=== PATIENT | male | born 1990 | race Caucasian/White ===

== ENCOUNTER → 2018-06-28 | Outpatient (CLI) | payer OTHER ==
--- NOTE | 2018-06-28 15:39 | RAD ---
Limited ultrasound evaluation, right lower extremity 06/28/2018 INDICATION: Nonpainful lump, right side. Lesion present approximately 1 year. COMPARISON STUDY: None Discussion: Focused sonographic evaluation of a palpable abnormality in the right thigh, medial to midline was performed. Static images are submitted to PACS. There is a subcutaneous hyperechoic rounded lesion which is relatively well demarcated measuring 1.8 x 1.6 x 1.0 cm. No internal blood flow is identified on color Doppler imaging. No calcification is seen. The appearance is suggestive of a small lipoma. IMPRESSION: Probable 1.8 cm lipoma which correlates with the area of palpable abnormality is identified by the patient. Clinical follow-up to ensure stability recommended. Electronically signed by: John Okeefe MD (06/28/2018 3:36 PM) [id number]
== END | disposition home or self-care (01) ==
LOC: US 12:28
PROVIDERS: ATTEND Nurse Practitioner Adult Health
DX: R22.41 Localized swelling, mass and lump, right lower limb (principal)
CPT/HCPCS: 76881